=== PATIENT | female | born 1990 | race American Indian/Alaskan Native ===

== ENCOUNTER 2017-03-29 20:30 | Emergency (ER) | payer MEDICAID ==
[2017-03-29 21:33] LABS: Basophils % (Auto) 0.6 % (0.0-1.8); Eosinophils % (Auto) 0.9 % (0.0-4.3); Hematocrit 36.5 % (30.3-42.9); Hemoglobin 11.3 gm/dl (10.1-14.3); Mean Corpuscular HGB Conc 31 % (30-34); Platelet Count 258 K/mm3 (140-440); Red Blood Count 5.68 M/mm3 (3.65-5.03); Red Cell Distribution Width 15.7 % (13.2-15.2); White Blood Count 13.4 K/mm3 (4.5-11.0)
[2017-03-29 21:44] LABS: Mean Corpuscular Volume 64 fl (79-97)
[2017-03-29 21:45] LABS: Mean Corpuscular Hemoglobin 20 pg (28-32)
[2017-03-29 21:52] LABS: Alanine Aminotransferase 13 units/L (7-56); Albumin/Globulin Ratio 1.3 %; Alkaline Phosphatase 56 units/L (35-129); Anion Gap 18 mmol/L; BUN/Creatinine Ratio 16.66; Blood Urea Nitrogen 10 mg/dL (7-17); Calcium 8.6 mg/dL (8.4-10.2); Carbon Dioxide 21 mmol/L (22-30); Chloride 101.5 mmol/L (98-107); Glucose 96 mg/dL (65-100); Lipase 26 units/L (13-60); Sodium 136 mmol/L (137-145); Total Protein 7.2 g/dL (6.3-8.2)
[2017-03-29 22:16] LABS: Bilirubin,Urine NEG (Negative); Blood,Urine NEG (Negative); Ketones,Urine TR mg/dL (Negative); Leukocyte Esterase,Urine TR (Negative); Mucus,Urine FEW /HPF; Nitrite,Urine NEG (Negative); Urobilinogen,Urine < 2.0 mg/dL (<2.0)
--- NOTE | 2017-03-30 12:25 | Emergency Department Report ---
ED General Adult HPI - General Chief complaint: Abdominal Pain Stated complaint: VOMITING/THROAT PAIN/DIZZINESS Time Seen by Provider: 03/30/17 12:15 Source: patient, RN notes reviewed Mode of arrival: Ambulatory Limitations: No Limitations - History of Present Illness Initial comments: This is a 27-year-old female, she is previously unknown to me. She does not have a primary care doctor, she has no chronic medical conditions with the exception of obesity, and she denies history of abdominal surgery. The patient presents to the ER complaining of throat pain, lower abdominal cramping, yellowish vaginal discharge. The patient reports that she is sexually active with 2 partners, to use intermittent condoms. She admits to mild nausea and vomiting, but this has since resolved. She has mild headache, does not sudden, severe, or thunderclap in nature. The patient denies irritative and obstructive urinary symptoms. The throat pain is achy and "scratchy". It worsens when she eats. She is able to tolerate liquid feeds. -: Gradual Location: mouth, genitals Severity scale (0 -10): 3 Quality: aching Consistency: intermittent Improves with: other (per hpi) Worsens with: other (per hpi) Associated Symptoms: headaches - Related Data Previous Rx's Medication Instructions Recorded Last Taken Type Amoxicillin [Trimox CAP] 500 mg PO Q8H #30 capsule 01/06/15 Unknown Rx traMADol [Ultram 50 MG tab] 50 mg PO Q6HR PRN #12 tablet 01/06/15 Unknown Rx Azithromycin [Zithromax Z-SOHA] 250 mg PO QDAY #6 tablet 11/26/15 Unknown Rx Promethazine /Codeine 5 ml PO Q6H PRN #40 ml 11/26/15 Unknown Rx [Phenergan/Codeine 6.25-10 mg/5 ml] Ibuprofen [Motrin] 600 mg PO Q8H PRN #30 tablet 03/30/17 Unknown Rx Ondansetron [Zofran Odt] 4 mg PO QID PRN #20 tab.rapdis 03/30/17 Unknown Rx Allergies Allergy/AdvReac Type Severity Reaction Status Date / Time No Known Allergies Allergy Unverified 12/16/14 09:13 ED Review of Systems ROS: Stated complaint: VOMITING/THROAT PAIN/DIZZINESS Other details as noted in HPI Constitutional: denies: fever, malaise Eyes: denies: vision change ENT: throat pain Respiratory: denies: cough Cardiovascular: denies: chest pain Gastrointestinal: abdominal pain Genitourinary: discharge. denies: urgency, dysuria Musculoskeletal: denies: back pain, arthralgia, myalgia Neurological: headache. denies: weakness Psychiatric: denies: anxiety ED Past Medical Hx - Past Medical History Previous Medical History?: Yes Additional medical history: overweight - Surgical History Past Surgical History?: No - Social History Smoking Status: Never Smoker Substance Use Type: None - Medications Home Medications: Home Medications Medication Instructions Recorded Confirmed Last Taken Type Amoxicillin [Trimox CAP] 500 mg PO Q8H #30 capsule 01/06/15 Unknown Rx traMADol [Ultram 50 MG tab] 50 mg PO Q6HR PRN #12 tablet 01/06/15 Unknown Rx Azithromycin [Zithromax Z-SOHA] 250 mg PO QDAY #6 tablet 11/26/15 Unknown Rx Promethazine /Codeine 5 ml PO Q6H PRN #40 ml 11/26/15 Unknown Rx [Phenergan/Codeine 6.25-10 mg/5 ml] Ibuprofen [Motrin] 600 mg PO Q8H PRN #30 tablet 03/30/17 Unknown Rx Ondansetron [Zofran Odt] 4 mg PO QID PRN #20 tab.rapdis 03/30/17 Unknown Rx ED Physical Exam - General Limitations: No Limitations General appearance: alert, in no apparent distress - Head Head exam: Present: atraumatic, normocephalic - Eye Eye exam: Present: normal appearance, EOMI. Absent: nystagmus - ENT ENT exam: Present: normal exam, normal orophraynx, mucous membranes moist, other (there is left-sided tonsillith noted. There is no stridor or dysphonia noted.) - Neck Neck exam: Present: normal inspection. Absent: tenderness, meningismus - Respiratory Respiratory exam: Present: normal lung sounds bilaterally. Absent: respiratory distress, wheezes, rales, rhonchi, stridor, chest wall tenderness, accessory muscle use, decreased breath sounds, prolonged expiratory - Cardiovascular Cardiovascular Exam: Present: regular rate, normal rhythm, normal heart sounds. Absent: bradycardia, tachycardia, irregular rhythm, systolic murmur, diastolic murmur, rubs, gallop - GI/Abdominal GI/Abdominal exam: Present: soft, normal bowel sounds. Absent: distended, tenderness, guarding, pulsatile mass - External exam: Present: normal external exam Speculum exam: Present: normal speculum exam, cervical discharge Bi-manual exam: Present: normal bi-manual exam, other (during the gynecologic examination, I am escorted by Elvia Coleman). Absent: cervical motion tendernes, adnexal tenderness, adnexal mass - Extremities Exam Extremities exam: Present: normal inspection, full ROM, normal capillary refill. Absent: tenderness, pedal edema, joint swelling, calf tenderness - Back Exam Back exam: Present: normal inspection, full ROM. Absent: tenderness, CVA tenderness (R), CVA tenderness (L), muscle spasm, paraspinal tenderness, vertebral tenderness - Neurological Exam Neurological exam: Present: alert, oriented X3, normal gait, other (Extraocular movements intact. Tongue midline. No facial droop. Facial sensation intact to light touch in the V1, V2, V3 distribution bilaterally. 5 and 5 strength in 4 extremities.. Sensation is intact to light touch in 4 extremities.). Absent : motor sensory deficit - Psychiatric Psychiatric exam: Present: normal affect, normal mood - Skin Skin exam: Present: warm, dry, intact, normal color. Absent: rash ED Course Vital Signs 03/29/17 03/30/17 03/30/17 20:56 04:23 12:31 Temperature 99.0 F 99.0 F 98.4 F Pulse Rate 100 H 93 H 100 H Respiratory 20 16 16 Rate Blood Pressure 156/106 139/92 127/86 [Right] O2 Sat by Pulse 100 100 100 Oximetry - Reevaluation(s) Reevaluation #1: 03/30/17 14:54 patient is tolerating liquid feeds. Abdominal exam is benign. She looks clinically well. Her tachycardia has resolved. She will be discharged. ED Medical Decision Making - Lab Data Result diagrams: 03/29/17 21:10 03/29/17 21:10 Vital Signs 03/29/17 03/30/17 03/30/17 20:56 04:23 12:31 Temperature 99.0 F 99.0 F 98.4 F Pulse Rate 100 H 93 H 100 H Respiratory 20 16 16 Rate Blood Pressure 156/106 139/92 127/86 [Right] O2 Sat by Pulse 100 100 100 Oximetry Labs 03/29/17 03/29/17 03/29/17 21:10 21:10 21:10 WBC 13.4 H RBC 5.68 H Hgb 11.3 Hct 36.5 MCV 64 L MCH 20 L MCHC 31 RDW 15.7 H Plt Count 258 Lymph % (Auto) 10.[address] [place] % (Auto) 5.4 Eos % (Auto) 0.9 Baso % (Auto) 0.6 Lymph # 1.4 [place] # 0.7 Eos # 0.1 Baso # 0.1 Seg Neutrophils % 82.5 H Seg Neutrophils # 11.1 H Sodium 136 L Potassium 4.0 Chloride 101.5 Carbon Dioxide 21 L Anion Gap 18 BUN 10 Creatinine 0.6 L Estimated GFR > 60 BUN/Creatinine Ratio 16.66 Glucose 96 Calcium 8.6 Total Bilirubin 0.50 AST 13 ALT 13 Alkaline Phosphatase 56 Total Protein 7.2 Albumin 4.0 Albumin/Globulin Ratio 1.3 Lipase 26 HCG, Qual Negative Urine Color Urine Turbidity Urine pH Ur Specific Ewing Urine Protein Urine Glucose (UA) Urine Ketones Urine Blood Urine Nitrite Urine Bilirubin Urine Urobilinogen Ur Leukocyte Esterase Urine WBC (Auto) Urine RBC (Auto) U Epithel Cells (Auto) Urine Mucus 03/29/17 21:48 WBC RBC Hgb Hct MCV MCH MCHC RDW Plt Count Lymph % (Auto) [place] % (Auto) Eos % (Auto) Baso % (Auto) Lymph # [place] # Eos # Baso # Seg Neutrophils % Seg Neutrophils # Sodium Potassium Chloride Carbon Dioxide Anion Gap BUN Creatinine Estimated GFR BUN/Creatinine Ratio Glucose Calcium Total Bilirubin AST ALT Alkaline Phosphatase Total Protein Albumin Albumin/Globulin Ratio Lipase HCG, Qual Urine Color Yellow Urine Turbidity Clear Urine pH 6.0 Ur Specific Ewing 1.032 H Urine Protein 30 mg/dl Urine Glucose (UA) Neg Urine Ketones Tr Urine Blood Neg Urine Nitrite Neg Urine Bilirubin Neg Urine Urobilinogen < 2.0 Ur Leukocyte Esterase Tr Urine WBC (Auto) 3.0 Urine RBC (Auto) 3.0 U Epithel Cells (Auto) 1.0 Urine Mucus Few - Medical Decision Making Differential diagnosis: Pharyngitis, pelvic inflammatory disease, vaginitis Assessment and plan: 27-year-old female with sore throat, vaginal discharge, benign abdominal exam, benign gynecologic exam , wet preps suggest trichomoniasis. Patient will be treated empirically for gonorrhea, chlamydia, and trichomoniasis. She is instructed to engage in safe sex practices. She will be discharged at this time with instructions to follow- up with gynecology. Return precautions are reviewed. Critical care attestation.: If time is entered above; I have spent that time in minutes in the direct care of this critically ill patient, excluding procedure time. ED Disposition Clinical Impression: Vaginitis, Pharyngitis Disposition: TO HOME OR SELFCARE Is pt being admited?: No Does the pt Need Aspirin: No Condition: Undetermined Instructions: Trichomoniasis (ED), Vaginitis (ED) Additional Instructions: Cultures were sent today, results will be available in the next 3-5 days. have your primary care doctor or communication assistant contact the medical records department to obtain culture results. Avoid consumption of alcohol for the next week. Follow up with your primary care doctor or communication assistant within the next week. The pelvic swallow demonstrated the presence of trichomoniasis, which is typically considered a sexually transmitted disease. Given all this, you'll be treated empirically for disease called pelvic inflammatory disease. We typically treat young females with unexplained lower abdominal pain to protect your ability to have children safely in the future. Cultures were sent today, and results will be available next 3-5 days. Please have your primary care doctor call the medical records department to obtain your culture results. Take the antibiotic therapy as directed. Take the nausea medication and pain medication as directed. I recommend outpatient testing for sexually transmitted diseases, including hepatitis, syphilis and HIV. I also recommend that you abstain from sexual activity until you have completed her antibiotic therapy, a physician states that it is safe for you to resume sexual activity, and any partners that you have been sexually active with have been tested/treated/evaluated for sexual transmitted diseases. Please follow-up with physician within 3-5 days. I recommend that you return to the ER right away with worsening pain, migration of pain, intractable nausea/vomiting, inability tolerate liquid feeds. Referrals: VICTOR MANUEL STUART MD [Other] - 3-5 Days [facility] [Provider Group] - 3-5 Days [facility] [Provider Group] - 3-5 Days [facility] [Provider Group] - 3-5 Days
[2017-03-30] MEDS ORDERED: TYLENOL PO ONE (12:45)
[2017-03-30] MEDS ORDERED: LIDOCAINE VISCOUS 2% MM NR (12:45)
[2017-03-30] MEDS ORDERED: MOTRIN PO ONE (12:45)
[2017-03-30] MEDS ORDERED: ROCEPHIN IM ONE (14:46)
[2017-03-30] MEDS ORDERED: XYLOCAINE 1% MPF 5 mL INFILTRATI ONE (14:46)
[2017-03-30] MEDS ORDERED: ZITHROMAX PO ONE (14:46)
[2017-03-30] MEDS ORDERED: FLAGYL PO ONE (14:46)
[2017-03-30 16:01] VITALS: BP 109/55
== END 2017-03-30 16:02 | disposition home or self-care (01) ==
LOC: ED 20:30
DX: N76.0 Acute vaginitis (principal); J02.9 Acute pharyngitis, unspecified; R51 Headache; R10.30 Lower abdominal pain, unspecified
CPT/HCPCS: 36415; 80053; 81001; 83690; 84703; 85025; 87116; 87210; 87430; 87591; 96372; 99284; J0696

== ENCOUNTER 2017-11-15 15:43 | Emergency (ER) | payer MEDICAID, OTHER ==
--- NOTE | 2017-11-15 21:17 | Emergency Department Report ---
HPI - General Chief Complaint: Upper Respiratory Infection Time Seen by Provider: 11/15/17 20:49 - HPI HPI: Patient here complaining of upper respiratory symptoms to include nausea, runny nose and generalized body ache. She says she has runny nose and congestion that started over a week ago and has been progressively worse she reports facial pressure and headache that is 8 out of 10 generalized a can and headache it is attended feels like pressure. She says she's been taking over-the- counter cough and cold medication is not helping. Denies any chest pain or shortness of breath. Denies any fever or chills. Reports coughing that is worse at night and a dry cough. Patient denies any medical problems. ED Past Medical Hx - Past Medical History Previous Medical History?: Yes Additional medical history: ectopic - Surgical History Past Surgical History?: Yes Additional Surgical History: breast reduction - Family History Family history: hypertension - Social History Smoking Status: Current Every Day Smoker Substance Use Type: Alcohol - Medications Home Medications: Home Medications Medication Instructions Recorded Confirmed Last Taken Type Amoxicillin [Trimox CAP] 500 mg PO Q8H #30 capsule 01/06/15 Unknown Rx traMADol [Ultram 50 MG tab] 50 mg PO Q6HR PRN #12 tablet 01/06/15 Unknown Rx Azithromycin [Zithromax Z-SOHA] 250 mg PO QDAY #6 tablet 11/26/15 Unknown Rx Promethazine /Codeine 5 ml PO Q6H PRN #40 ml 11/26/15 Unknown Rx [Phenergan/Codeine 6.25-10 mg/5 ml] Ondansetron [Zofran Odt] 4 mg PO QID PRN #20 tab.rapdis 03/30/17 Unknown Rx Cetirizine HCl [ZyrTEC] 10 mg PO QDAY #10 tab.rapdis 11/15/17 Unknown Rx Fluticasone [Flonase] 1 spray NS QDAY 10 Days #1 bottle 11/15/17 Unknown Rx Ibuprofen [Motrin 600 MG tab] 600 mg PO Q8H PRN #12 tablet 11/15/17 Unknown Rx guaiFENesin/CODEINE [Robitussin AC] 10 ml PO QHS PRN #70 ml 11/15/17 Unknown Rx ED Review of Systems ROS: Stated complaint: FLU LIKE SYMPTOMS Other details as noted in HPI Comment: All other systems reviewed and negative Constitutional: denies: chills, fever Eyes: denies: eye pain, eye discharge ENT: congestion. denies: ear pain, throat pain, dental pain, hearing loss, epistaxis Respiratory: cough. denies: shortness of breath, SOB with exertion, SOB at rest , stridor, wheezing Cardiovascular: denies: chest pain, palpitations, dyspnea on exertion, edema, syncope, paroxysmal nocturnal dyspnea Gastrointestinal: nausea. denies: abdominal pain, vomiting, diarrhea, constipation Genitourinary: denies: dysuria, hematuria Musculoskeletal: myalgia. denies: back pain, joint swelling, arthralgia Neurological: headache. denies: weakness, numbness, paresthesias, confusion, abnormal gait, vertigo Physical Exam - Physical Exam Vital Signs: Vital Signs 11/15/17 18:16 Temperature 97.9 F Pulse Rate 89 Respiratory 18 Rate Blood Pressure 120/78 O2 Sat by Pulse 100 Oximetry Vital Signs (72 hours) 11/15/17 11/15/17 11/15/17 18:16 22:03 22:23 Temperature 97.9 F 98.0 F Pulse Rate 89 102 H Respiratory 18 20 18 Rate Blood Pressure 120/78 Blood Pressure 126/61 [Left] O2 Sat by Pulse 100 99 Oximetry General: This is a 27-year-old female well-nourished well-developed in no acute distress. Physical Exam: Head: Normocephalic atraumatic Ears:BIateral TM congested without erythema and loss of bony landmarks. Allan EAC with normal exam. No mastoid bone tenderness. Mouth: Moist, no pharyngeal erythema or exudate . No tonsillar erythema or exudate. UVULA midline and oral airways patent. No peritonsillar abscess Neck: Nontender to palpate, supple, normal range of motion. No adenopathy. No c- spine tenderness. Nose: Bilateral nasal mucosa congested with clear drainage. Maxillary and frontal sinuses tender to palpate. Eyes: Bilateral Sclerae and conjunctiva without injection. Bilateral pupils equal and reactive to light. Bilateral lids are normal. Normal accommodation.BEOMI Lungs: Clear to auscultate bilaterally, no rhonchi wheezes or rales. Normal work of breathing and no chest wall tenderness. Dry cough Abdomen: Tender to palpate in all quadrants, no guarding rebound tenderness. Normal bowel sounds in all quadrants and no CVA tenderness Extremity: Then, cyanosis or edema. +2 pulses all extremities and no neurovascular compromise CV: S1, S2. Regular rate and rhythm negative murmur. Capillary refill is less than 3 seconds Skin: Clean dry and intact, no rashes or lesions Psych: Normal mood and behavior ED Course Vital Signs 11/15/17 18:16 Temperature 97.9 F Pulse Rate 89 Respiratory 18 Rate Blood Pressure 120/78 O2 Sat by Pulse 100 Oximetry Vital Signs 11/15/17 11/15/17 11/15/17 18:16 22:03 22:23 Temperature 97.9 F 98.0 F Pulse Rate 89 102 H Respiratory 18 20 18 Rate Blood Pressure 120/78 Blood Pressure 126/61 [Left] O2 Sat by Pulse 100 99 Oximetry - Reevaluation(s) Reevaluation #1: 11/15/17 23:03 Patient received Tylenol with codeine 2 tablets for pain and Zofran 8 mg ODT for nausea which relieved both nausea and pain. ED Medical Decision Making - Medical Decision Making ED course: Here with upper respiratory complaints to include nausea, runny nose headache generalized body ache without any fever and other vital signs are stable. She said this has been going on for over a week but it got worse 3 days ago. Patient found to have acute sinusitis, cough and nausea. She was given Tylenol 3 2 tablets in the emergency room along with Zofran 8 mg ODT. She is able to tolerate oral liquids. I discussed the patient diagnosis and treatment plan and she voiced understanding and I also discussed with her that she needs to follow up with her primary care physician she does have one. Patient discharged home with prescription for Augmentin, Zyrtec, Flonase and guaifenesin with codeine. Critical care attestation.: If time is entered above; I have spent that time in minutes in the direct care of this critically ill patient, excluding procedure time. ED Disposition Clinical Impression: Cough in adult patient, Nausea and vomiting in adult Acute sinusitis Qualifiers: Sinusitis location: unspecified location Recurrence: not specified as recurrent Qualified Code(s): J01.90 - Acute sinusitis, unspecified Acute headache Qualifiers: Headache type: unspecified Intractability: not intractable Qualified Code(s): R51 - Headache Disposition: - TO HOME OR SELFCARE Is pt being admited?: No Does the pt Need Aspirin: No Condition: Stable Instructions: Sinusitis (ED), Acute Cough (ED), Acute Headache (ED) Additional Instructions: Please increase her fluid intake Flush nostrils with saline nasal spray take antibiotic as prescribed F/U with primary care physician as instructed Guaifenesin with codeine is a cough medicine that you were prescribed to take before you go to bed. This medication causes drowsiness so please do not drive or operate heavy machinery while taking this medication Prescriptions: guaiFENesin/CODEINE [Robitussin AC] 10 ml PO QHS PRN #70 ml PRN Reason: Cough Cetirizine HCl [ZyrTEC] 10 mg PO QDAY #10 tab.rapdis Fluticasone [Flonase] 1 spray NS QDAY 10 Days #1 bottle Ibuprofen [Motrin 600 MG tab] 600 mg PO Q8H PRN #12 tablet PRN Reason: Pain Referrals: ADRIANNE MILTON MD [Primary Care Provider] - 2-3 Days [facility] [Outside] - 2-3 Days Forms: Work/School Release Form(ED)
[2017-11-15] MEDS ORDERED: ZOFRAN ODT PO ONE (21:32)
[2017-11-15] MEDS ORDERED: TYLENOL #3 PO ONE (21:32)
[2017-11-15 22:04] VITALS: BP 126/61
== END 2017-11-15 23:20 | disposition home or self-care (01) ==
LOC: ED 15:43
DX: J01.00 Acute maxillary sinusitis, unspecified (principal); J01.10 Acute frontal sinusitis, unspecified
CPT/HCPCS: 99282; Q0162

== ENCOUNTER 2017-12-13 17:15 | Emergency (ER) | payer OTHER ==
[2017-12-13 17:52] VITALS: BP 121/79
[2017-12-13 19:05] LABS: Basophils # (Auto) 0.1 K/mm3 (0.0-0.1); Basophils % (Auto) 0.6 % (0.0-1.8); Eosinophils # (Auto) 0.1 K/mm3 (0.0-0.4); Eosinophils % (Auto) 0.7 % (0.0-4.3); Hematocrit 38.7 % (30.3-42.9); Lymphocytes # (Auto) 3.4 K/mm3 (1.2-5.4); Mean Corpuscular HGB Conc 34 % (30-34); Mean Corpuscular Hemoglobin 28 pg (28-32); Mean Corpuscular Volume 83 fl (79-97); Monocytes # (Auto) 1.2 K/mm3 (0.0-0.8); Monocytes % (Auto) 7.7 % (0.0-7.3); Platelet Count 377 K/mm3 (140-440); Red Blood Count 4.67 M/mm3 (3.65-5.03); Red Cell Distribution Width 14.2 % (13.2-15.2)
[2017-12-13 19:07] LABS: Bacteria,Urine 1+ /HPF (Negative); Bilirubin,Urine NEG (Negative); Blood,Urine NEG (Negative); Color,Urine Yellow (Yellow); Mucus,Urine FEW /HPF; Protein,Urine <15 mg/dL mg/dL (Negative); Urobilinogen,Urine < 2.0 mg/dL (<2.0); WBC,Urine < 1.0 /HPF (0.0-6.0)
[2017-12-13 19:21] LABS: Alanine Aminotransferase 19 units/L (7-56); BUN/Creatinine Ratio 10; Blood Urea Nitrogen 6 mg/dL (7-17); Calcium 8.9 mg/dL (8.4-10.2); Hemolysis Index 11
[2017-12-13] MEDS ORDERED: NACL 0.9% 1000 ML 1,000 ML IV ONE (20:25)
[2017-12-13] MEDS ORDERED: REGLAN IV ONE (20:25)
[2017-12-13] MEDS ORDERED: D5NS 1,000 ML IV ONE (20:33)
--- NOTE | 2017-12-13 20:40 | Emergency Department Report ---
ED N/V/D HPI - General Chief complaint: Nausea/Vomiting/Diarrhea Stated complaint: NAUSEA/VOMITING Time Seen by Provider: 12/13/17 20:21 Source: patient Mode of arrival: Stretcher Limitations: No Limitations - History of Present Illness Initial comments: This is a 27-year-old female nontoxic, well nourished in appearance, no acute signs of distress presents to the ED with c/o of nausea and vomiting x3 days. Patient stated she is 8 weeks with normal . Patient stated she was taking Zofran snd Reglan with no relief. Patient stated that her ENVIRONMENTAL HEALTH PHYSICIAN instructed patient to come to the ED for further evaluation. Patient denies any abdominal pain, fever, chills, headache, stiff neck, back pain, vaginal bleeding , chest pain or shortness of breathe. Patient denies any allergies or PMH. MD complaint: nausea, vomiting -: days(s) (3) Associated Abdominal Pain: No Radiation: none Pain Scale: 0 Consistency: constant Improves with: none Worsens with: none Associated Symptoms: denies other symptoms. denies: myalgias, chest pain, cough , diaphoresis, fever/chills, headaches, loss of appetite, malaise, nausea/ vomiting, rash, dysuria, shortness of breath, syncope, weakness - Related Data Previous Rx's Medication Instructions Recorded Last Taken Type Amoxicillin [Trimox CAP] 500 mg PO Q8H #30 capsule 01/06/15 Unknown Rx traMADol [Ultram 50 MG tab] 50 mg PO Q6HR PRN #12 tablet 01/06/15 Unknown Rx Azithromycin [Zithromax Z-SOHA] 250 mg PO QDAY #6 tablet 11/26/15 Unknown Rx Promethazine /Codeine 5 ml PO Q6H PRN #40 ml 11/26/15 Unknown Rx [Phenergan/Codeine 6.25-10 mg/5 ml] Ondansetron [Zofran Odt] 4 mg PO QID PRN #20 tab.rapdis 03/30/17 Unknown Rx Cetirizine HCl [ZyrTEC] 10 mg PO QDAY #10 tab.rapdis 11/15/17 Unknown Rx Fluticasone [Flonase] 1 spray NS QDAY 10 Days #1 bottle 11/15/17 Unknown Rx Ibuprofen [Motrin 600 MG tab] 600 mg PO Q8H PRN #12 tablet 11/15/17 Unknown Rx guaiFENesin/CODEINE [Robitussin AC] 10 ml PO QHS PRN #70 ml 11/15/17 Unknown Rx Metoclopramide [Reglan] 10 mg PO TID PRN #15 tab 12/13/17 Unknown Rx Allergies Allergy/AdvReac Type Severity Reaction Status Date / Time No Known Allergies Allergy Unverified 12/16/14 09:13 ED Review of Systems ROS: Stated complaint: NAUSEA/VOMITING Other details as noted in HPI Constitutional: denies: chills, fever Eyes: denies: eye pain, eye discharge, vision change ENT: denies: ear pain, throat pain Respiratory: denies: cough, shortness of breath, wheezing Cardiovascular: denies: chest pain, palpitations Endocrine: no symptoms reported Gastrointestinal: nausea, vomiting. denies: abdominal pain, diarrhea Genitourinary: denies: urgency, dysuria, discharge Musculoskeletal: denies: back pain, joint swelling, arthralgia Skin: denies: rash, lesions Neurological: denies: headache, weakness, paresthesias Psychiatric: denies: anxiety, depression Hematological/Lymphatic: denies: easy bleeding, easy bruising ED Past Medical Hx - Past Medical History Previous Medical History?: Yes Hx Hypertension: Yes Hx Psychiatric Treatment: Yes (PTSD) Additional medical history: ectopic , miscarriage - Surgical History Past Surgical History?: Yes Additional Surgical History: breast reduction; ectopic - Social History Smoking Status: Never Smoker Substance Use Type: None - Medications Home Medications: Home Medications Medication Instructions Recorded Confirmed Last Taken Type Amoxicillin [Trimox CAP] 500 mg PO Q8H #30 capsule 01/06/15 Unknown Rx traMADol [Ultram 50 MG tab] 50 mg PO Q6HR PRN #12 tablet 01/06/15 Unknown Rx Azithromycin [Zithromax Z-SOHA] 250 mg PO QDAY #6 tablet 11/26/15 Unknown Rx Promethazine /Codeine 5 ml PO Q6H PRN #40 ml 11/26/15 Unknown Rx [Phenergan/Codeine 6.25-10 mg/5 ml] Ondansetron [Zofran Odt] 4 mg PO QID PRN #20 tab.rapdis 03/30/17 Unknown Rx Cetirizine HCl [ZyrTEC] 10 mg PO QDAY #10 tab.rapdis 11/15/17 Unknown Rx Fluticasone [Flonase] 1 spray NS QDAY 10 Days #1 bottle 11/15/17 Unknown Rx Ibuprofen [Motrin 600 MG tab] 600 mg PO Q8H PRN #12 tablet 11/15/17 Unknown Rx guaiFENesin/CODEINE [Robitussin AC] 10 ml PO QHS PRN #70 ml 11/15/17 Unknown Rx Metoclopramide [Reglan] 10 mg PO TID PRN #15 tab 12/13/17 Unknown Rx ED Physical Exam - General Limitations: No Limitations General appearance: alert, in no apparent distress - Head Head exam: Present: atraumatic, normocephalic - Eye Eye exam: Present: normal appearance, PERRL, EOMI Pupils: Present: normal accommodation - ENT ENT exam: Present: normal exam, normal orophraynx, mucous membranes moist, TM's normal bilaterally, normal external ear exam - Neck Neck exam: Present: normal inspection, full ROM. Absent: tenderness, meningismus, lymphadenopathy, thyromegaly - Respiratory Respiratory exam: Present: normal lung sounds bilaterally. Absent: respiratory distress, wheezes, rales, rhonchi, stridor, chest wall tenderness, accessory muscle use, decreased breath sounds, prolonged expiratory - Cardiovascular Cardiovascular Exam: Present: regular rate, normal rhythm, normal heart sounds. Absent: bradycardia, tachycardia, irregular rhythm, systolic murmur, diastolic murmur, rubs, gallop - GI/Abdominal GI/Abdominal exam: Present: soft, normal bowel sounds. Absent: distended, tenderness, guarding, rebound, rigid, diminished bowel sounds - Rectal Rectal exam: Present: deferred - Extremities Exam Extremities exam: Present: normal inspection, full ROM, normal capillary refill. Absent: tenderness, pedal edema, joint swelling, calf tenderness - Back Exam Back exam: Present: normal inspection, full ROM. Absent: tenderness, CVA tenderness (R), CVA tenderness (L), muscle spasm, paraspinal tenderness, vertebral tenderness, rash noted - Neurological Exam Neurological exam: Present: alert, oriented X3, CN II-XII intact, normal gait, reflexes normal - Psychiatric Psychiatric exam: Present: normal affect, normal mood - Skin Skin exam: Present: warm, dry, intact, normal color. Absent: rash ED Course Vital Signs 12/13/17 17:45 Temperature 98.3 F Pulse Rate 84 Respiratory 16 Rate Blood Pressure 121/79 O2 Sat by Pulse 99 Oximetry - Reevaluation(s) Reevaluation #1: 12/13/17 20:41 Patient is speaking in full sentences with no signs of distress noted. ED Medical Decision Making - Lab Data Result diagrams: 12/13/17 18:52 12/13/17 18:52 - Medical Decision Making This is a 27-year-old female that presents with nausea and vomiting. Patient is stable and was examined by me. There is no abdominal pain. Patient received 1L of D5NS and reglan IV which patient stated symptoms has resolved. A PO challenge has been performed and patient tolerated well with no nausea or vomiting. Patient was instructed to increase hydration as much as possible. Patient is discharged with reglan. Patient was instructed to Follow-up with a ob /swimmer doctor in 3-5 days or if symptoms worsen and continue return to emergency room as soon as possible. At time of discharge, the patient does not seem toxic or ill in appearance. No acute signs of distress noted. Patient agrees to discharge treatment plan of care. No further questions noted by the patient. Critical care attestation.: If time is entered above; I have spent that time in minutes in the direct care of this critically ill patient, excluding procedure time. ED Disposition Clinical Impression: Nausea and vomiting Qualifiers: Vomiting type: unspecified Vomiting Intractability: unspecified Qualified Code( s): R11.2 - Nausea with vomiting, unspecified Disposition: DC-01 TO HOME OR SELFCARE Is pt being admited?: No Does the pt Need Aspirin: No Condition: Stable Instructions: Acute Nausea and Vomiting (ED), (ED), Metoclopramide ( By mouth) Additional Instructions: Follow-up with a compressor operator portable doctor in 3-5 days or if symptoms worsen and continue return to emergency room as soon as possible. Prescriptions: Metoclopramide [Reglan] 10 mg PO TID PRN #15 tab PRN Reason: Nausea Referrals: PRIMARY CARE, [Primary Care Provider] - 3-5 Days JUAN A RITCHIE MD [Staff Physician] - 3-5 Days [facility] [Outside] - 3-5 Days [facility] [Outside] - 3-5 Days Forms: Work/School Release Form(ED)
[2017-12-13] MEDS ORDERED: TYLENOL PO ONE (20:50)
== END 2017-12-13 22:41 | disposition home or self-care (01) ==
LOC: ED 17:15
DX: O26.891 Other specified pregnancy related conditions, first trimester (principal); R11.2 Nausea with vomiting, unspecified; I10 Essential (primary) hypertension; Z3A.08 8 weeks gestation of pregnancy
CPT/HCPCS: 36415; 80053; 81001; 84703; 85025; 96365; 96375; 99284; J2765; J7042

== ENCOUNTER 2018-03-24 12:12 | Outpatient (CLI) | payer OTHER ==
[2018-03-24 12:31] VITALS: BP 106/64
[2018-03-24] MEDS ORDERED: LACTATED RINGERS 1,000 ML ONE (13:05)
[2018-03-24] MEDS ORDERED: LACTATED RINGERS 500 ML IV ONE (13:15)
[2018-03-24] MEDS ORDERED: ZOFRAN IV ONE (13:20)
[2018-03-24 13:51] LABS: Hematocrit 36.4 % (30.3-42.9); Hemoglobin 11.8 gm/dl (10.1-14.3); Mean Corpuscular HGB Conc 32 % (30-34); Mean Corpuscular Hemoglobin 28 pg (28-32); Mean Corpuscular Volume 86 fl (79-97); Platelet Count 361 K/mm3 (140-440); Red Blood Count 4.21 M/mm3 (3.65-5.03); Red Cell Distribution Width 14.6 % (13.2-15.2)
[2018-03-24 14:05] LABS: Alanine Aminotransferase 15 units/L (7-56); Albumin 3.7 g/dL (3.9-5); Lipase 15 units/L (13-60)
[2018-03-24 14:06] LABS: Albumin 3.5 g/dL (3.9-5); BUN/Creatinine Ratio 14; Blood Urea Nitrogen 7 mg/dL (7-17); Calcium 8.8 mg/dL (8.4-10.2); Hemolysis Index 130
[2018-03-24 14:16] LABS: Bilirubin,Direct < 0.2 mg/dL (0-0.2)
[2018-03-24 14:35] LABS: Alanine Aminotransferase 15 units/L (7-56)
== END 2018-03-24 16:10 | disposition home or self-care (01) ==
LOC: TRG 12:12
PROVIDERS: ATTEND Obstetrics & Gynecology
DX: O47.02 False labor before 37 completed weeks of gestation, second trimester (principal); Z3A.22 22 weeks gestation of pregnancy
CPT/HCPCS: 36415; 59025; 80053; 80074; 82150; 83690; 85027; 96360; 96361; J2405; J7120

== ENCOUNTER 2018-05-12 11:52 | Outpatient (CLI) | payer MEDICAID ==
[2018-05-12] MEDS ORDERED: LACTATED RINGERS 1,000 ML ONE (12:52)
[2018-05-12 13:31] LABS: Bacteria,Urine 4+ /HPF (Negative); Bilirubin,Urine NEG (Negative); Blood,Urine NEG (Negative); Color,Urine Yellow (Yellow); Mucus,Urine 1+ /HPF; Urobilinogen,Urine < 2.0 mg/dL (<2.0)
[2018-05-12] MEDS ORDERED: LACTATED RINGERS 1,000 ML IV ONE (13:54)
[2018-05-12] MEDS ORDERED: ZOFRAN IV ONE (14:20)
[2018-05-12 14:21] VITALS: BP 119/67
== END 2018-05-12 14:55 | disposition home or self-care (01) ==
LOC: TRG 11:52
PROVIDERS: ATTEND Obstetrics & Gynecology
DX: O47.03 False labor before 37 completed weeks of gestation, third trimester (principal); Z3A.29 29 weeks gestation of pregnancy; Z88.0 Allergy status to penicillin; Z88.6 Allergy status to analgesic agent
CPT/HCPCS: 59025; 81001; 96360; 96361; 96374; J2405; J7120

== ENCOUNTER 2018-06-27 02:13 | Outpatient (CLI) | payer MEDICAID ==
[2018-06-27 02:28] VITALS: BP 121/76
[2018-06-27] MEDS ORDERED: LACTATED RINGERS 1,000 ML IV ONE (03:02)
--- NOTE | 2018-06-27 04:13 | Ultrasound Report ---
FINAL REPORT PROCEDURE: US OB LIMITED TECHNIQUE: Real-time limited sonographic examination was performed for evaluation of amniotic fluid, well-being for each fetus with image documentation (1 or more fetuses). CPT 56627 HISTORY: Non Reassurring Heart Tracing COMPARISON: No prior studies are available for comparison. FINDINGS: There is a single fetus in a vertex presentation. The placenta is along the anterior uterus. heart rate 156 beats per minute. The 4 quadrant amniotic fluid volume is 13.1 centimeters. No further measurements are obtained on this study. IMPRESSION: Single fetus in a vertex presentation. The placenta is along the anterior uterus. Four quadrant amniotic fluid volume 13.1 centimeter
--- NOTE | 2018-06-27 04:24 | Ultrasound Report ---
FINAL REPORT PROCEDURE: US OB BPP WO NON-STRESS TECHNIQUE: Sonographic evaluation for breathing, movement, tone, and amniotic fluid volume was performed. CPT 78248 HISTORY: Non Reassurring Heart Tracing COMPARISON: No prior studies are available for comparison. FINDINGS: Amniotic fluid volume: Normal-score 2. At least one vertical pocket > 2 cm or more in vertical axis. breathing: Normal-score 2. movement: Normal-score 2. tone: Normal. Score: 8 of 8. IMPRESSION: Normal biophysical profile.
[2018-06-27] MEDS ORDERED: VISTARIL PO ONE (04:47)
[2018-06-27] MEDS ORDERED: VISTARIL ONE (04:53)
== END 2018-06-27 05:00 | disposition home or self-care (01) ==
LOC: TRG 02:13
PROVIDERS: ATTEND Obstetrics & Gynecology
DX: O47.03 False labor before 37 completed weeks of gestation, third trimester (principal); Z3A.36 36 weeks gestation of pregnancy
CPT/HCPCS: 59025; 76815; 76819; 96360; J7120; Q0177

== ENCOUNTER 2018-06-27 11:29 | Inpatient (IN) | payer MEDICAID ==
[2018-06-27] MEDS ORDERED: BRETHINE IVP PRN (13:55)
[2018-06-27] MEDS ORDERED: MINERAL OIL PO PRN (13:55)
[2018-06-27] MEDS ORDERED: XYLOCAINE 2% INFILTRATI ONE (13:55)
[2018-06-27] MEDS ORDERED: POLYCILLIN/NS 2 GM/100 ML 2 GM/100 ML BAG IV ONE (13:55)
[2018-06-27] MEDS ORDERED: BRETHINE SUB-Q PRN (13:55)
[2018-06-27] MEDS ORDERED: SUBLIMAZE IV PRN (13:55)
[2018-06-27] MEDS ORDERED: STADOL IV PRN (13:55)
[2018-06-27] MEDS ORDERED: ZOFRAN IV PRN ×2 (13:55→20:36)
[2018-06-27] MEDS ORDERED: PITOCin/NS 20 UNIT/1000ML DRIP 20 UNITS/1,000 ML BAG IV SCH (14:00)
[2018-06-27] MEDS ORDERED: PITOCin/NS 30 UNIT/500ML 30 UNITS/500 ML BAG IV SCH ×3 (14:00→18:00)
[2018-06-27] MEDS ORDERED: LACTATED RINGERS 1,000 ML IV SCH (14:00)
--- NOTE | 2018-06-27 14:18 | History and Physical Report ---
History of Present Illness Date of examination: 06/27/18 Date of admission: 06/27/18 11:30 Chief complaint: contractions History of present illness: This is a 28 yo at 36+2 weeks in labor. She is a patient of [facility] since 7 weeks. SHe has a h xof morbid obesity seen by RUDI. Recommneded delivery at 39 weeks. HX of ectopic. HX of htn chronic on no meds Past History Past Medical History: hypertension Past Surgical History: D&C (), other (salpingectomy ) Family/Genetic History: hypertension, other (asthma) Social history: no significant social history, single, alcohol abuse. denies: smoking, prescription drug abuse - Obstetrical History Expected Date of Delivery: 07/22/18 Actual Gestation: 36 Week(s) 3 Day(s) : 6 Para: 1 Hx # Term Pregnancies: 1 Number of Pregnancies: 0 Spontaneous Abortions: 0 Induced : 1 Number of Living Children: 1 Medications and Allergies Allergies Allergy/AdvReac Type Severity Reaction Status Date / Time ondansetron Allergy Hives Verified 05/12/18 14:54 [From Zofran (as hydrochloride)] Penicillins Allergy Shortness Verified 05/12/18 14:54 of Breath Home Medications Medication Instructions Recorded Confirmed Last Taken Type No Known Home Medications [No 05/12/18 05/12/18 Unknown History Reported Home Medications] Active Meds: Active Medications Butorphanol Tartrate (Stadol) 2 mg IV Q2H PRN PRN Reason: Pain , Severe (7-10) Ephedrine Sulfate (Ephedrine Sulfate) 10 mg IV Q2M PRN PRN Reason: Hypotension Fentanyl (Sublimaze) 100 mcg IV Q2H PRN PRN Reason: Labor Pain Lactated Ringer's (Lactated Ringers) 1,000 mls @ 125 mls/hr IV DIRECT MAYCOL Oxytocin/Sodium Chloride (Pitocin/Ns 20 Unit/1000ml Drip) 20 units in 1,000 mls @ 125 mls/hr IV DIRECT MAYCOL Oxytocin/Sodium Chloride (Pitocin/Ns 30 Unit/500ml) 30 units in 500 mls @ 1 mls /hr IV TITR MAYCOL; Protocol Oxytocin/Sodium Chloride (Pitocin/Ns 30 Unit/500ml) 30 units in 500 mls @ 2 mls /hr IV TITR MAYCOL; Protocol Lidocaine (Xylocaine 2%) 20 ml INFILTRATI ONCE ONE Stop: 06/27/18 13:56 Mineral Oil (Mineral Oil) 30 ml PO QHS PRN PRN Reason: Constipation Ondansetron HCl (Zofran) 4 mg IV Q8H PRN PRN Reason: Nausea And Vomiting Terbutaline Sulfate (Brethine) 0.25 mg SUB-Q ONCE PRN PRN Reason: Hyperstimulation/Hypertonicity Terbutaline Sulfate (Brethine) 0.25 mg IVP ONCE PRN PRN Reason: Hyperstimulation/Hypertonicity Review of Systems All systems: negative Genitourinary: contractions - Physical Exam Breasts: Positive: normal Cardiovascular: Regular rate, Normal S1 Lungs: Positive: Clear to auscultation, Normal air movement Abdomen: Positive: normal appearance, soft, normal bowel sounds. Negative: distention, tenderness, guarding Genitourinary (Female): Positive: normal external genitalia, normal perenium Uterus: Positive: normal size, normal contour Anus/Rectum: Positive: normal perianal skin Deep Tendon Reflex Grade: Normal +2 - Obstetrical FHR: category 1 Cervical Dilatation: 4 Cervical Effacement Percentage: 50 station: -2 Uterine Contraction Pattern: Regular Uterine Contraction Intensity: Moderate Results All other labs normal. Assessment and Plan A/P IUP 36+3 weeks GBS neg active labor bmz stat close monitor
[2018-06-27 15:57] LABS: Hematocrit 37.2 % (30.3-42.9); Hemoglobin 12.3 gm/dl (10.1-14.3); Mean Corpuscular HGB Conc 33 % (30-34); Mean Corpuscular Hemoglobin 28 pg (28-32); Mean Corpuscular Volume 86 fl (79-97); Platelet Count 272 K/mm3 (140-440); Red Blood Count 4.35 M/mm3 (3.65-5.03); Red Cell Distribution Width 14.2 % (13.2-15.2)
--- NOTE | 2018-06-27 17:15 | Anesthesia Consultation ---
Anesthesia Consult and Med Hx Date of service: 06/27/18 - Airway Anesthetic Teeth Evaluation: Good Mallampati Class: Class II - Pulmonary Exam CTA: Yes - Cardiac Exam Cardiac Exam: RRR - Pre-Operative Health Status ASA Pre-Surgery Classification: ASA2 Proposed Anesthetic Plan: Epidural - Pulmonary Hx Asthma: No COPD: No Hx Pneumonia: No - Cardiovascular System Hx Hypertension: No - Central Nervous System Hx Seizures: No Hx Psychiatric Problems: No - Endocrine Hx Renal Disease: No Hx End Stage Renal Disease: No Hx Hypothyroidism: No Hx Hyperthyroidism: No - Hematic Hx Anemia: No Hx Sickle Cell Disease: No - Other Systems Hx Alcohol Use: No
[2018-06-27] MEDS ORDERED: AMPICILLIN/NS 1 GM/50 ML 1 GM/50 ML BAG IV SCH (17:57)
[2018-06-27] MEDS ORDERED: NARCAN 2 MG/2 ML IV PRN (18:44)
[2018-06-27] MEDS ORDERED: NACL 0.9% 1000 ML 1,000 ML VG SCH (19:00)
[2018-06-27] MEDS ORDERED: fentaNYL-BUPIV 2 MCG/ML-0.125% 200 MCG/100 ML BAG EPIDURAL SCH (19:00)
--- NOTE | 2018-06-27 20:35 | Procedure Note ---
OB Delivery Note - Delivery Date of Delivery: 06/27/18 Surgeon: JUAN A RITCHIE Estimated blood loss: other (400 cc) - Vaginal Delivery presentation: vertex Delivery position: OA Delivery induction: none Delivery augmentation: rupture of membranes, pitocin Delivery monitor: none Route of delivery: Delivery placenta: spontaneous Delivery cord: nuchal cord (around foot( left) ) Episiotomy: none Delivery laceration: none Anesthesia: epidural Delivery comments: Patient was noted to be c/c +2 station and pushed one time to deliver a viable female infant in LING presentation at 2020. The shoulders delivered easily of 5 pound 1 oz baby. The cord was clamped and cut. The placenta delivered at 2024 intact with 3 vessel cord. Patient perineum was evaluated and no laceration noted that required suture. Peds arrived and evaluated baby. EBL 400 cc. Patient tolerated procedure well and bonding with baby. - Infant A at 1 minute: 8 at 5 minutes: 9 Gender: Female
[2018-06-27] MEDS ORDERED: TUCKS PAD TP PRN (20:36)
[2018-06-27] MEDS ORDERED: LANSINOH TP PRN (20:36)
[2018-06-27] MEDS ORDERED: TORADOL IV PRN (20:36)
[2018-06-27] MEDS ORDERED: PHENERGAN PO PRN (20:36)
[2018-06-27] MEDS ORDERED: TYLENOL PO PRN (20:36)
[2018-06-27] MEDS ORDERED: MILK OF MAGNESIA PO PRN (20:36)
[2018-06-27] MEDS ORDERED: PHENERGAN PR PRN (20:36)
[2018-06-27] MEDS ORDERED: DULCOLAX PR PRN (20:36)
[2018-06-27] MEDS ORDERED: BENADRYL PO PRN (20:36)
[2018-06-27] MEDS ORDERED: PERCOCET 5/325 PO PRN (20:36)
[2018-06-27] MEDS ORDERED: SODIUM CHLORIDE FLUSH SYRINGE 10 ML IV NR (21:00)
[2018-06-28] MEDS: MOTRIN PO SCH ×4 (01:00→22:33)
[2018-06-28 10:07] LABS: Hematocrit 34.6 % (30.3-42.9); Hemoglobin 11.5 gm/dl (10.1-14.3)
[2018-06-28] MEDS: PRENATAL VITAMIN PO SCH (11:00)
[2018-06-28] MEDS: COLACE PO SCH ×2 (11:00→22:33)
[2018-06-28] MEDS: NORCO 5/325 PO PRN ×2 (11:00→17:05)
[2018-06-28] MEDS ORDERED: M-M-R II VACCINE SUB-Q ONE (20:36)
[2018-06-29] MEDS: NORCO 5/325 PO PRN (04:14)
[2018-06-29] MEDS: MOTRIN PO SCH ×2 (04:22→12:12)
[2018-06-29] MEDS ORDERED: BOOSTRIX IM ONE (06:00)
--- NOTE | 2018-06-29 10:14 | Progress Note ---
Assessment and Plan A: PPD#2 s/p , Right hip pain, Dysuria P: Orthopedic Surgery consult Urinalysis Continue to monitor clinically Subjective - Subjective Date of service: 06/29/18 Principal diagnosis: s/p at term Interval history: Pt reports right hip pain, worse overnight. Difficulty ambulating without limping. Pt uncomfortable going home prior to having her hip evaluated. She does note some right hip pain during her , but the pain has intensified this morning. She also reports dysuria. Patient reports: appetite normal, voiding normally, pain well controlled, no ambulating normally [place]: doing well Objective - Vital Signs Latest vital signs: Vital Signs Temp Pulse Resp BP BP Pulse Ox 06/29/18 04:22 20 06/29/18 04:14 06/29/18 01:26 97.9 F 69 18 99/60 99 06/28/18 23:33 20 06/28/18 22:33 18 06/28/18 16:05 98.9 F 90 18 111/84 98 Intake and Output 06/28/18 06/29/18 06/29/18 22:59 06:59 14:59 Intake Total 360 Balance 360 Intake: Intake, Free Water 360 Other: # Voids Void 2 - Exam Breasts: Present: deferred Cardiovascular: Present: Regular rate Lungs: Present: Clear to auscultation Abdomen: Present: soft (obese ) Extremities: Present: normal
[2018-06-29] MEDS: COLACE PO SCH (12:12)
[2018-06-29] MEDS: PRENATAL VITAMIN PO SCH (12:12)
--- NOTE | 2018-06-29 13:52 | XRay Report ---
RIGHT HIP, ONE VIEW History: hip pain. Findings: Single AP view of the right hip demonstrates normal alignment with no evidence for fracture or joint pathology. Impression: Normal single view of the right hip.
--- NOTE | 2018-06-29 17:38 | Discharge Summary ---
Providers - Providers Date of Admission: 06/27/18 11:30 Date of discharge: 06/29/18 Attending physician: JUAN A RITCHIE MD 06/29/18 10:08 Consult to Physician [CONS] Routine Comment: Consulting Provider: ORQUIDEA DESOUZA Physician Instructions: Reason For Exam: Right hip pain, difficulty ambulating, recent deli Primary care physician: JUAN A RITCHIE MD Hospitalization Reason for admission: labor Delivery: Procedure details: Please see delivery note. Episiotomy: none Laceration: none Other procedures: none complications: none Discharge diagnosis: other, delivery Gregory baby: female Hospital course: Pt was admitted for labor and went on to have a spontaneous vaginal delivery which she tolerated well. Her course was complicated by right hip pain which was evaluated by orthopedic surgery. She met discharge criteria on PPD#2. She will follow up in 4 wks with [facility]'s Inspector [place]. Condition at discharge: Stable Disposition: - TO HOME OR SELFCARE - Discharge Diagnoses (1) delivery Status: Acute (2) Morbid obesity Status: Acute (3) Right hip pain Status: Acute Plan - Discharge Medications Prescriptions: Ferrous Sulfate 325 mg PO BID #60 tablet. Ibuprofen [Motrin] 600 mg PO Q8H PRN #30 tablet PRN Reason: Pain oxyCODONE /ACETAMINOPHEN [Percocet 5/325] 1 tab PO Q6HR PRN #30 tablet PRN Reason: Pain - Provider Discharge Summary Activity: routine, no sex for 6 weeks, no heavy lifting 4 weeks, no strenuous exercise Diet: routine Instructions: routine Additional instructions: [] Smoking cessation referral if applicable(refer to patient education folder for contact #) [] Refer to [facility] Booklet Call your doctor immediately for: * Fever > 100.5 * Heavy vaginal bleeding ( >1 pad per hour) * Severe persistent headache * Shortness of breath * Reddened, hot, painful area to leg or breast * Drainage or odor from incision. * Keep incision clean and dry at all times and follow doctor's instructions regarding bathing/showering - Follow up plan Follow up: JUAN A RITCHIE MD [Primary Care Provider] - 07/25/18 (Please call to schedule appt )
[2018-06-29 17:54] LABS: Bilirubin,Urine NEG (Negative); Blood,Urine LG (Negative); Color,Urine Yellow (Yellow); Protein,Urine <15 mg/dL mg/dL (Negative); Urobilinogen,Urine < 2.0 mg/dL (<2.0)
[2018-06-29 18:15] VITALS: BP 113/79
== END 2018-06-29 21:18 | disposition home or self-care (01) | DRG 774 ==
LOC: TRG 11:29 → LD 11:30 → TRG 14:05 → OB 23:31
PROVIDERS: ADMIT Obstetrics & Gynecology; ATTEND Obstetrics & Gynecology
PROC: 10E0XZZ Delivery of Products of Conception, External Approach (ICD-10-PCS; principal; 2018-06-27)
PROC: 3E0R3BZ Introduction of Anesthetic Agent into Spinal Canal, Percutaneous Approach (ICD-10-PCS; 2018-06-27)
PROC: 00HU33Z Insertion of Infusion Device into Spinal Canal, Percutaneous Approach (ICD-10-PCS; 2018-06-27)
PROC: 3E0234Z Introduction of Serum, Toxoid and Vaccine into Muscle, Percutaneous Approach (ICD-10-PCS; 2018-06-27)
DX: O99.214 Obesity complicating childbirth (principal); O16.4 Unspecified maternal hypertension, complicating childbirth; E66.01 Morbid (severe) obesity due to excess calories; O75.89 Other specified complications of labor and delivery; M25.551 Pain in right hip; R30.0 Dysuria; O99.52 Diseases of the respiratory system complicating childbirth; J45.909 Unspecified asthma, uncomplicated; O69.81X0 Labor and delivery complicated by cord around neck, without compression, not applicable or unspecified; Z3A.36 36 weeks gestation of pregnancy; Z37.0 Single live birth; Z90.721 Acquired absence of ovaries, unilateral; Z88.0 Allergy status to penicillin; Z88.8 Allergy status to other drugs, medicaments and biological substances; O60.14X0 Preterm labor third trimester with preterm delivery third trimester, not applicable or unspecified; Z68.41 Body mass index [BMI] 40.0-44.9, adult; Z23 Encounter for immunization
CPT/HCPCS: 36415; 81001; 85014; 85018; 85027; 86592; 86850; 86900; 86901; 90471; 90715; 99211; G0463; J2405; J2590; J3010; J7030; J7120